=== PATIENT | female | born 1950 ===

== ENCOUNTER 2019-06-02 11:37 | Emergency (ER) | payer OTHER ==
[~2019-06-02] VITALS: Ht 152.4 cm; Wt 95.7 kg
[~2019-06-02 11:37] MED LIST: CARTIA XT240 MG PO; DIOVAN HCT 160-1 TA1 PO; FIORICET TABLET1 TAB PO; TOPROL XL100 MG PO
[2019-06-02] MEDS ORDERED: NORVASC5 MG (12:12)
== END 2019-06-02 16:16 | disposition home or self-care (01) ==
LOC: ER 11:37
DX: R05 Cough (principal)

== ENCOUNTER 2019-06-14 21:31 | Emergency (ER) | payer OTHER ==
[~2019-06-14] VITALS: Ht 154.9 cm; Wt 97.1 kg
[~2019-06-14 21:31] MED LIST changes: +NORVASC5 MG
== END 2019-06-14 22:31 | disposition home or self-care (01) ==
LOC: ER 21:31
DX: L03.115 Cellulitis of right lower limb (principal)

== ENCOUNTER 2019-06-18 07:33 | Emergency (ER) | payer OTHER ==
[~2019-06-18] VITALS: Ht 154.9 cm; Wt 97.1 kg
[2019-06-18] MEDS ORDERED: CEFADROXIL500 MG (07:47)
== END 2019-06-18 12:07 | disposition home or self-care (01) ==
LOC: ER 07:33
DX: L03.115 Cellulitis of right lower limb (principal)